=== PATIENT | female | born 1955 | race Caucasian/White ===

== ENCOUNTER 2018-03-28 16:03 | Emergency (ER) | payer MEDICAID ==
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
[2018-03-28 19:23] VITALS: BP 126/73
== END 2018-03-28 19:32 | disposition home or self-care (01) ==
LOC: ER 16:03
DX: S33.5XXA Sprain of ligaments of lumbar spine, initial encounter (principal); J06.9 Acute upper respiratory infection, unspecified; M54.9 Dorsalgia, unspecified; J02.9 Acute pharyngitis, unspecified; M54.5 Low back pain; R50.9 Fever, unspecified; H92.01 Otalgia, right ear; R11.2 Nausea with vomiting, unspecified; X58.XXXA Exposure to other specified factors, initial encounter; Z87.891 Personal history of nicotine dependence
CPT/HCPCS: 87070; 87880; 99283